=== PATIENT | female | born 1995 | race Caucasian/White ===

== ENCOUNTER 2017-02-07 20:19 | Emergency (ER) | payer OTHER ==
[2017-02-07 20:25] VITALS: TEMP 97.9
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
[2017-02-07 21:31] VITALS: BP 110/62; PULSE 72; RESP 16; O2SAT 95
== END 2017-02-07 21:29 | disposition home or self-care (01) ==
DX: S80.01XA Contusion of right knee, initial encounter (principal); W22.8XXA Striking against or struck by other objects, initial encounter

== ENCOUNTER 2017-06-03 17:46 | Emergency (ER) | payer OTHER ==
--- NOTE | 2017-06-03 18:13 | EDPHY ---
H & P Smoking Status: Never smoked Time Seen by Provider: 06/03/17 17:53 HPI/ROS: CHIEF COMPLAINT: Right knee injury HISTORY OF PRESENT ILLNESS: 21-year-old female presents to the emergency department with injury to her right knee. The patient states that she was at work last evening and slipped on some water and somehow fell injuring her right knee. She is now unable to bear weight or fully extend her right knee without severe pain. The patient has a history of chronic pain in her right knee for years. She was going to start physical therapy for her chronic right knee pain however this has not been initiated. She denies hitting her head or losing consciousness. Denies any other trauma or injury. ROS: Denies numbness or tingling in her toes, pain in her right ankle or hip. ( Gale Harmonrojelio Gerard) Past Medical/Surgical History: Chronic right knee pain (Gale Harmonrojelio Gerard) Social History: Single, pharmaceutical sales specialist at [employer] (Gale Harmonrojelio Gerard) Physical Exam: Examination of the right knee reveals no effusion. She does have a small ecchymotic area to the anterior aspect of her right knee overlying the patella. She has diffuse tenderness with palpation of the right knee. No palpable crepitus or other bony abnormality. She has pain with palpation especially the medial joint line. Unable to fully extend her right knee secondary to pain. She is able to lift her right leg up in the air unassisted. Her patellar and quadriceps tendon are intact. Her right calf and right ankle are nontender. Right thigh is nontender. Difficult to assess ligament stability given her pain. Gait is not tested due to pain. (Daphnie Harmon) Constitutional: Initial Vital Signs Temperature (C) 36.7 C 06/03/17 17:48 Heart Rate 74 06/03/17 17:48 Respiratory Rate 16 06/03/17 17:48 Blood Pressure 122/74 H 06/03/17 17:48 O2 Sat (%) 98 06/03/17 17:48 O2 Delivery Mode Room Air Allergies/Adverse Reactions: Penicillins Allergy (Verified 06/03/17 17:47) Sulfa (Sulfonamide Antibiotics) Allergy (Verified 06/03/17 17:47) Home Medications: Medication Instructions Recorded Bcp 08/24/14 MDM/Departure - MDM Imaging: I viewed and interpreted images myself - MDM Imaging Results: Imaging Impressions Knee X-Ray 06/03/17 18:10 Impression: 1. No definite acute fracture. 2. Consider additional imaging if symptoms persist, if clinically indicated. X-rays of the right knee reveal no fractures. This is reviewed by myself PAC system. Radiology interpretation to follow. (Daphnie Harmon) Procedures: Patient was placed in a straight leg knee immobilizer and examined post application in good placement with normal W[employer]. (Daphnie Harmon) ED Course/Re-evaluation: 21-year-old female presents after right knee injury at work. X-rays reveal no fractures. Patient is still unable to fully extend and unable to ambulate. She was placed in a straight leg knee immobilizer and given orthopedic referral. (Daphnie Harmon) I did not see this patient while she was in the emergency department. However her care was discussed with the PA while the patient was in the department. I agree with treatment plan and management (Fab Song) - Depart Disposition: Home, Routine, Self-Care Clinical Impression: Contusion of right knee Qualifiers: Encounter type: initial encounter Qualified Code(s): S80.01XA - Contusion of right knee, initial encounter Right knee sprain Qualifiers: Encounter type: initial encounter Involved ligament of knee: unspecified ligament Qualified Code(s): S83.91XA - Sprain of unspecified site of right knee , initial encounter Condition: Good Instructions: Knee Sprain (ED), Contusion in Adults (ED) Additional Instructions: Straight leg knee immobilizer for comfort and support. Weightbear as tolerated or use crutches. Ibuprofen 600 mg every 8 hours as needed for pain with food. Follow-up with Occupational Health and orthopedic surgeon as discussed. Work Related Injury: Date of Injury (if different from Date of Service): 06/03/2017 Your work restrictions, if any, last only until the next business day. Formal evaluation for work restrictions beyond one day must be arranged through your employer's workman's compensation provider. Restrictions are noted below: xNo work until reexamined. Referrals: Corey Grijalva MD [Medical Doctor] - 5-7 days, call for appt. (Orthopedic surgeon on-call) Work Comp Ref/Restrictions [Outside] - As per Instructions
[2017-06-03 19:20] VITALS: BP 110/78; PULSE 55; RESP 12; TEMP 97.5; O2SAT 96
== END 2017-06-03 19:21 | disposition home or self-care (01) ==
DX: S83.91XA Sprain of unspecified site of right knee, initial encounter (principal); S80.01XA Contusion of right knee, initial encounter; W01.0XXA Fall on same level from slipping, tripping and stumbling without subsequent striking against object, initial encounter; Y99.0 Civilian activity done for income or pay
CPT/HCPCS: L1830

== ENCOUNTER 2017-07-15 19:50 | Emergency (ER) | payer OTHER ==
[2017-07-15 20:01] VITALS: TEMP 98.8
--- NOTE | 2017-07-15 20:26 | EDPHY ---
H & P Smoking Status: Never smoked <Seven Kwong B - Last Filed: 07/15/17 21:01> <Nancy Prasad - Last Filed: 07/15/17 22:05> Time Seen by Provider: 07/15/17 20:08 HPI/ROS: HPI Right leg swelling. 21-year-old female by private vehicle with her friend. She has a history of a patella dislocation on June 02. She has been doing vigorous physical therapy for this injury. She reports she was at a concert last night. She reports that she woke this morning and noticed that her right lower extremity was swollen relative to her left lower extremity. This has persisted all day. She has not had any chest pain. She has not had any shortness of breath. She is on control pills. No history of coagulopathy. ROS: Constitutional: No fever, no chills. No weakness. Respiratory: No cough. No shortness of breath. Cardiac: No chest pain, no palpitations. Gastrointestinal: No abdominal pain, no vomiting, no diarrhea. Genitourinary: No hematuria. No dysuria or increased frequency with urination. Musculoskeletal: No back pain. No neck pain. No myalgias or arthralgias. As above. Skin: No rashes. Neurological: No headache. No focal weakness or altered sensation. Past medical history: As above. Social history: Here with her friend. Student [employer]. Nonsmoker. No alcohol. Physical Exam: General Appearance: Alert, no distress. This patient is responding to questions appropriately and in full sentences. This patient appears well- hydrated and well-nourished. Respiratory: There are no retractions, lungs are clear to auscultation with good air movement bilaterally. Cardiovascular: Regular rate and rhythm. No murmur. Neurological: Motor sensory function is grossly intact. Cranial nerves are normal. Gait is normal. Skin: Warm and dry, no rashes. Musculoskeletal: Neck is supple and nontender. Extremities are asymmetrical with a diffuse swelling of the right lower extremity. Right lower extremity exam, no palpable cords, negative Homans sign , right lower extremity is neurovascularly intact. No ecchymosis, erythema or warmth associated with right lower extremity. All joints range without pain or impingement. Psychiatric: No agitation. No depression. Database: EKG: Imaging: Procedures: Emergency department course: After my evaluation, the patient was sent for ultrasound imaging of her right lower extremity to evaluate for possible DVT. 9:00 p.m., awaiting results of right lower extremity ultrasound. Care turned over to Dr. Nancy Prasad at this time. Differential Diagnosis: The differential diagnosis on this patient includes but is not limited to DVT, lymphatic obstruction. This represents a partial list of diagnoses considered. These considerations are based on history, physical exam, past history, reassessment and diagnostic testing. (Seven Kwong) Constitutional: Initial Vital Signs Temperature (C) 37.1 C 07/15/17 19:59 Heart Rate 60 07/15/17 19:59 Respiratory Rate 20 07/15/17 19:59 Blood Pressure 106/43 L 07/15/17 19:59 O2 Sat (%) 97 07/15/17 19:59 O2 Delivery Mode Room Air Allergies/Adverse Reactions: Penicillins Allergy (Verified 07/15/17 19:58) Sulfa (Sulfonamide Antibiotics) Allergy (Verified 07/15/17 19:58) Home Medications: Medication Instructions Recorded Bcp 08/24/14 Medical Decision Making <Seven Kwong - Last Filed: 07/15/17 21:01> - Diagnostics Imaging: Discussed imaging studies w/ senior hardware engineer Radiologist <Nancy Prasad - Last Filed: 07/15/17 22:05> - Diagnostics Imaging Results: Imaging Impressions Extremity Venous Study 07/15/17 20:19 Impression: No deep venous thrombosis right leg. Results called to the emergency room at the time of the examination. Other Provider: I assumed care of this patient from Dr. Kwong at 21:00 2106: The patients tech reports the ultrasound is normal. 2109: Reassessed patient and discussed ultrasound results. I have referred her to have an outpatient follow up visit with Dr. Grijalva regarding her symptoms and ultrasound results. Return precautions provided; patient is comfortable with this plan. (Nancy Prasad) Departure <Seven Kwong - Last Filed: 07/15/17 21:01> <Nancy Prasad - Last Filed: 07/15/17 22:05> - Departure Disposition: Home, Routine, Self-Care Clinical Impression: Swelling of right lower extremity Condition: Good Instructions: Leg Edema (ED) Additional Instructions: As we discussed, the ultrasound does not show a blood clot (deep venous thrombosis) in your right leg. If you continue with swelling or if you have any new or concerning symptoms such as pain, redness, or warmth--you should be re-evaluated. Let Dr. Grijalva know about this swelling and about your ultrasound. Referrals: JOSE HERNÁNDEZ [Other] - As per Instructions Corey Grijalva MD [Medical Doctor] - As per Instructions Report Scribed for: Nancy Prasad Report Scribed by: Neisha Artis Date of Report: 07/15/17 Time of Report: 21:07 <Nancy Prasad - Last Filed: 07/15/17 22:05>
[2017-07-15 21:41] VITALS: BP 122/36; PULSE 52; RESP 18; O2SAT 96
== END 2017-07-15 21:41 | disposition home or self-care (01) ==
DX: M79.89 Other specified soft tissue disorders (principal)